=== PATIENT | female | born 1985 | race Caucasian/White ===

== ENCOUNTER 2016-03-29 17:00 | Emergency (ER) | payer OTHER ==
[~2016-03-29] VITALS: Ht 157.5 cm; Wt 44.9 kg
[~2016-03-29 17:00] MED LIST: ALEVE220 M1 PO; ALPRAZOLAM 0.50.5 M1 PO; CYMBALTA30 MG PO; GRALISE300 MG PO; GRALISE600 MG PO; HYDROCODON-ACE1 EAC7 PO; IBUPROFEN 200200 M1 PO; KLONOPIN1 MG PO; MELOXICAM7.5 MG PO; NUCYNTA75 MG PO; ROXICODONE5 MG PO; TRAMADOL 50 MG50 MG PO; XANAX 0.5 MG0.5 MG PO
[2016-03-29] MEDS ORDERED: VALIUM5 MG PO (17:16)
[2016-03-29] MEDS ORDERED: MOBIC15 MG PO (19:38)
[2016-03-29] MEDS ORDERED: PREDNISONE 20 M20 MG PO (19:52)
[2016-03-29] MEDS ORDERED: FLEXERIL PO (19:52)
== END 2016-03-29 20:03 | disposition home or self-care (01) ==
LOC: ER 17:00
DX: M54.5 Low back pain (principal); Z88.6 Allergy status to analgesic agent; Z88.5 Allergy status to narcotic agent